=== PATIENT | male | born 1970 | race Caucasian/White ===

== ENCOUNTER → 2017-09-25 | Outpatient (CLI) | payer OTHER ==
[2017-09-25 15:31] LABS: BASOPHILS # (AUTO) 0.1 X10^3/uL (0.0-0.1); BASOPHILS % (AUTO) 0.9 % (0.2-1.0); EOSINOPHILS # (AUTO) 0.2 x10^3/uL (0.0-0.2); EOSINOPHILS % (AUTO) 2.9 % (0.9-2.9); HEMATOCRIT 40.6 % (42.0-54.0); HEMOGLOBIN 13.3 g/dL (13.5-18.0); LYMPHOCYTES # (AUTO) 2.4 X10^3/uL (1.3-2.9); LYMPHOCYTES % (AUTO) 34.5 % (21.0-51.0); MEAN CORPUSCULAR HEMOGLOBIN 23.9 pg (27.0-34.0); MEAN CORPUSCULAR HGB CONC 32.8 g/dL (33.0-35.0); MEAN CORPUSCULAR VOLUME 72.9 fL (80.0-100.0); MONOCYTES # (AUTO) 0.6 x10^3/uL (0.3-0.8); MONOCYTES % (AUTO) 8.6 % (0.0-13.0); NEUTROPHILS # (AUTO) 3.6 x10^3/uL (2.2-4.8); NEUTROPHILS % (AUTO) 53.1 % (42.0-75.0); PLATELET COUNT 226 X10^3/uL (150.0-450.0); RED BLOOD COUNT 5.57 X10^6/uL (4.7-6.0); RED CELL DISTRIBUTION WIDTH 23.1 % (11.6-16.5); WHITE BLOOD COUNT 6.9 X10^3/uL (3.6-10.0)
[2017-09-25 15:56] LABS: PLATELET MORPHOLOGY COMMENT NORMAL (NORMAL)
[2017-09-25 15:57] LABS: ANISOCYTOSIS 2+
== END ==
LOC: LAB 15:12
PROVIDERS: ATTEND Internal Medicine Gastroenterology
DX: D64.89 Other specified anemias (principal)
CPT/HCPCS: 36415; 85025

== ENCOUNTER 2022-08-26 16:09 | Observation (INO) ==
[2022-08-26] MEDS ORDERED: NS 1,000 ML IV 1,000 ML IV ONE ×3 (16:53→20:47)
[2022-08-26] MEDS ORDERED: NS 1,000 ML IV 1,000 ML ONE ×2 (16:54→18:24)
[2022-08-26] MEDS ORDERED: TORADOL 30 MG VIAL IVP ONE (17:07)
[2022-08-26] MEDS ORDERED: TORADOL 30 MG VIAL ONE (17:09)
[2022-08-26 17:14] LABS: BASOPHILS % (AUTO) 0.5 % (0.2-1.0); EOSINOPHILS % (AUTO) 0.1 % (0.9-2.9); HEMATOCRIT 47.3 % (42.0-54.0); HEMOGLOBIN 16.7 g/dL (13.5-18.0); LYMPHOCYTES # (AUTO) 0.9 X10^3/uL (1.3-2.9); LYMPHOCYTES % (AUTO) 16.2 % (21.0-51.0); MEAN CORPUSCULAR HEMOGLOBIN 29.7 pg (27.0-34.0); MEAN CORPUSCULAR HGB CONC 35.3 g/dL (33.0-35.0); MEAN CORPUSCULAR VOLUME 84.1 fL (80.0-100.0); MEAN PLATELET VOLUME 8.9 fL (7.4-11.0); MONOCYTES # (AUTO) 0.7 x10^3/uL (0.3-0.8); MONOCYTES % (AUTO) 11.4 % (0.0-13.0); NEUTROPHILS # (AUTO) 4.2 x10^3/uL (2.2-4.8); NEUTROPHILS % (AUTO) 71.8 % (42.0-75.0); RED BLOOD COUNT 5.63 X10^6/uL (4.7-6.0); WHITE BLOOD COUNT 5.9 X10^3/uL (3.6-10.0)
[2022-08-26 17:22] LABS: ALANINE AMINOTRANSFERASE 57 Units/L (12-78); ALBUMIN 3.3 g/dL (3.4-5.0); ALKALINE PHOSPHATASE 88 Units/L (46-116); ASPARTATE AMINO TRANSFERASE 36 Units/L (15-37); BLOOD UREA NITROGEN 46 mg/dL (7-18); CALCIUM 8.6 mg/dL (8.5-10.1); CARBON DIOXIDE 28.5 mmol/L (21-32); CHLORIDE 95 mmol/L (98-107); COR CA(FOR HYPOALB) 9.2 mg/dL (8.5-10.1); CREATININE 2.22 mg/dL (0.70-1.30); SODIUM 132 mmol/L (136-145); TOTAL PROTEIN 7.2 g/dL (6.4-8.2); eGFR NON BLACK RACES 33 (>60)
--- NOTE | 2022-08-26 18:15 | DR.HEADACH ---
HPI Time Seen Time Seen by Provider: 08/26/22 18:07 Primary Care Physician Primary Care Physician: ARINA HPI Comment HPI Comment: According to pt he had cold like symptoms with bodyaches .Pt called his FP .Tamiflu was called in .Pt took it felt little better and then began experiencing non- bloody watery diarrhea and fatigue.Pt has had low appetite .only been sipping small amount of fluid .Has also experienced nausea and voming without abdominal pain .his symptoims have persisted .Hence the visit .no oe at home with similar symptoms. Complaint/Symptoms Chief Complaint Doctors Comments: diarrhea Chief Complaint:: SINCE SUNDAY HAVING DIARRHEA, CAN'T HOLD ANY FOOD DOWN, N/V, UNABLE TO EAT/DRINK SINCE SUNDAY. THINKS HE ATE SOME "BAD CHICKEN" ON SUNDAY. THE SUNDAY BEFORE, HE WAS TREATED FOR FLU Self Treatment fo Chief Complaint: DID NOT TAKE BP MEDS THIS MORNING COVID-19 Coronavirus risk:travel/contact w/high risk person: No Has patient experienced Coronavirus symptoms: No Reviewed Nurses Notes Reviewed: Yes Source History Provided: Patient Mode of Arrival Mode of Arrival: Ambulatory Timing Onset of Chief Complaint: 08/23/22 Duration Since Onset: Since Onset Duration: Days Location Headache Location: Frontal Quality Quality: Aching Severity Headache Severity: Moderate PMH PMH Past Medical History: Yes Past Medical History: Hypertension and Kidney Stones Past Medical History Comment: DEE Past Surgical History: Yes Surgical History: Cholecystectomy and Lithotripsy Family History History of Family Medical Conditions: Yes Family Medical History: Diabetes Mellitus, Coronary Artery Disease and Hypertension Social History Does any household member use tobacco: No Alcohol Use: None Do you use any recreational Drugs:: No Lives With: Spouse and Family Lives Where: Home Travel Risk Coronavirus risk:travel/contact w/high risk person: No Has patient experienced Coronavirus symptoms: No Infectious screening In the last 2 months have you had wt loss of >10#?: NO Have you had fever, night sweats or hemotysis?: No Have you traveled outside the country in the last 6 months?: No Isolation: Standard ROS Review of Systems Constitutional: Malaise and Fatigue Eyes: No Symptoms Reported ENTM: No Symptoms Reported Respiratoy: No Symptoms Reported Cardiovascular: No Symptoms Reported Gastrointestinal/Abdominal: See HPI Genitourinary: No Symptoms Reported Neurological: Headache Musculoskeletal: No Symptoms Reported Integumentary: No Symptoms Reported Hematologic/Lymphatic: No Symptoms Reported Endocrine: No Symptoms Reported Psychiatric: No Symptoms Reported PE Vital Signs Vitals: Temperature 97.8 F Pulse Rate 76 Respiratory Rate 18 Blood Pressure [Left Arm] 165/78 Blood Pressure 111/55 O2 Sat by Pulse Oximetry 99 General Limitations: No Limitations General Appearance: Alert, In No Apparent Distress and Anxious Head Head Exam: Normal Inspection, Atraumatic and Normocephalic Eyes Eye exam: PERRL ENT ENT Exam: Normal Exam and Mucous Membranes Dry Mouth Exam: Normal Inspection Neck Neck Exam: Normal Inspection Chest Chest Inspection: Normal Inspection and Symmetric Chest Wall Rise Respiratory Respiratory Exam: Normal Lung Sounds Bilat Respiratory Exam: Bilateral: Clear to Auscultation Cardiovascular Cardiovascular Exam: +S1 and +S2 Abdominal Exam Abdominal Exam: Normal Bowel Sounds, Soft and Hyperactive Bowel Sounds Extremities Extremities Exam: Normal Inspection and Full ROM Back Back Exam: Full ROM Neurologic Neurological Exam: Alert and Oriented X3 Skin Skin Exam: Normal Color MDM Additional Information Obtained Additional Findings:: gastroenteritis ,viral syndrome headache COURSE Treatment Treatment: labs ,toradol ,iv fluids ROR Labs Reviewed Result Diagrams: 08/26/22 17:00 08/26/22 17:00 Laboratory: WBC 5.9 X10^3/uL (3.6-10.0) 08/26/22 17:00 RBC 5.63 X10^6/uL (4.7-6.0) 08/26/22 17:00 Hgb 16.7 g/dL (13.5-18.0) 08/26/22 17:00 Hct 47.3 % (42.0-54.0) 08/26/22 17:00 MCV 84.1 fL (80.0-100.0) 08/26/22 17:00 MCH 29.7 pg (27.0-34.0) 08/26/22 17:00 MCHC 35.3 g/dL (33.0-35.0) H 08/26/22 17:00 RDW 14.0 % (11.6-16.5) 08/26/22 17:00 Plt Count 235 X10^3/uL (150.0-450.0) 08/26/22 17:00 MPV 8.9 fL (7.4-11.0) 08/26/22 17:00 Neut % (Auto) 71.8 % (42.0-75.0) 08/26/22 17:00 Lymph % (Auto) 16.2 % (21.0-51.0) L 08/26/22 17:00 [place] % (Auto) 11.4 % (0.0-13.0) 08/26/22 17:00 Eos % (Auto) 0.1 % (0.9-2.9) L 08/26/22 17:00 Baso % (Auto) 0.5 % (0.2-1.0) 08/26/22 17:00 Neut # (Auto) 4.2 x10^3/uL (2.2-4.8) 08/26/22 17:00 Lymph # (Auto) 0.9 X10^3/uL (1.3-2.9) L 08/26/22 17:00 [place] # (Auto) 0.7 x10^3/uL (0.3-0.8) 08/26/22 17:00 Eos # (Auto) 0.0 x10^3/uL (0.0-0.2) 08/26/22 17:00 Baso # (Auto) 0.0 X10^3/uL (0.0-0.1) 08/26/22 17:00 Absolute Nucleated RBC 0.1 /100WBC 08/26/22 17:00 Sodium 132 mmol/L (136-145) L 08/26/22 17:00 Corrected Sodium TNP 08/26/22 17:00 Potassium 3.1 mmol/L (3.5-5.1) L 08/26/22 17:00 Chloride 95 mmol/L (98-107) L 08/26/22 17:00 Carbon Dioxide 28.5 mmol/L (21-32) 08/26/22 17:00 BUN 46 mg/dL (7-18) H 08/26/22 17:00 Creatinine 2.22 mg/dL (0.70-1.30) H 08/26/22 17:00 Est GFR (MDRD) Af Amer 40 (>60) L 08/26/22 17:00 Est GFR (MDRD) Non-Af 33 (>60) L 08/26/22 17:00 Glucose 95 mg/dL (65-99) 08/26/22 17:00 Calcium 8.6 mg/dL (8.5-10.1) 08/26/22 17:00 Corrected Calcium 9.2 mg/dL (8.5-10.1) 08/26/22 17:00 Total Bilirubin 0.60 mg/dL (0.2-1.0) 08/26/22 17:00 AST 36 Units/L (15-37) 08/26/22 17:00 ALT 57 Units/L (12-78) 08/26/22 17:00 Alkaline Phosphatase 88 Units/L (46-116) 08/26/22 17:00 Total Protein 7.2 g/dL (6.4-8.2) 08/26/22 17:00 Albumin 3.3 g/dL (3.4-5.0) L 08/26/22 17:00 Globulin 3.9 g/dL (2.5-4.5) 08/26/22 17:00 Albumin/Globulin Ratio 0.8 Ratio (1.1-2.1) L 08/26/22 17:00 Lipase 1015 Units/L (73-393) H 08/26/22 17:00 Influenza Type A Ag Negative-presumptive (NEGATIVE) 08/26/22 16:55 Influenza Type B Ag Negative-presumptive (NEGATIVE) 08/26/22 16:55 Opioid Opioid Risk Tool Age ([place] box if 16-45): No History of Preadolescent Sexual Abuse: No Total: 0 Total Score Risk Category: Low Risk Copyright: [facility] predicting aberrant behaviors Discharge Plan Diagnosis Discharge Problem: Acute pancreatitis, Acute dehydration, Acute renal failure, Hypokalemia Discharge Plan Patient Disposition: 01 HOME, SELF-CARE Condition: Stable Prescriptions: No Action esomeprazole magnesium 40 mg capsule,delayed release(DR/EC) 40 mg PO DAILY testosterone cypionate 200 mg/mL oil 200 mg IM WEEKLY buprenorphine HCl 2 mg tablet, sublingual 2 mg sublingual DAILY dextroamphetamine-amphetamine [Adderall] 20 mg Tablet 20 mg PO DAILY escitalopram oxalate 10 mg tablet 10 mg PO DAILY bupropion HCl [Wellbutrin XL] 300 mg Tablet Extended Release 24 Hr 300 mg PO DAILY Health Concerns: Post Hospitalization: new medications and changes needed to prevent readmission or further decline. Pt educated and given instructions on all concerns. Plan of Treatment: Continue with present treatment and follow up plan. Pt is to keep follow up appointment as instructed and take medications as ordered. Orders to Discharge Patient Discharge Orders: Discharge (Routine); Ordered 08/26/22 Ordered By: Nathan Crowder Transfer (Routine); Ordered 08/26/22 Ordered By: Nathan Crowder Follow ups/Referrals Follow ups/Referrals: Nikko Gomez [Primary Care Provider] - 3 days Instructions Stand Alone Forms: Precautions for [place] [address], [facility], Patient Portal, Social Distancing ADDITIONAL NOTES Additional Notes Additional Notes: labs reviewed Pt has elevated ser cr and bun with GFR 33( stage 3 renal failure) .last year ser cr was normal .Will give IV fluids and supplement potassium .spoke with Dr Conner agreed to admit patient .lipase elevated
[2022-08-26] MEDS ORDERED: K-DUR TAB 20 MEQ PO STA (18:16)
[2022-08-26] MEDS ORDERED: K-DUR TAB 20 MEQ PO ONE (18:17)
[2022-08-26] MEDS ORDERED: LR 1,000 ML IV 1,000 ML IV ONE (19:35)
[2022-08-26] MEDS: LR 1,000 ML IV 1,000 ML IV SCH (19:45)
[2022-08-26 20:36] LABS: BILIRUBIN,URINE NEGATIVE (NEGATIVE); BLOOD/HEMOGLOBIN,URINE 2+ (NEGATIVE); GLUCOSE, URINE NEGATIVE (NEGATIVE); KETONES,URINE 1+ (NEGATIVE); LEUKOCYTE ESTERASE ,URINE NEGATIVE (NEGATIVE); NITRITES,URINE NEGATIVE (NEGATIVE); PROTEIN,URINE 2+ (NEGATIVE); UROBILINOGEN,URINE NORMAL (NORMAL)
[2022-08-26 20:40] LABS: APPEARANCE,URINE CLEAR (CLEAR); COLOR,URINE PALE YELLOW (YELLOW)
[2022-08-26 20:41] LABS: BACTERIA,URINE TRACE /HPF (NEGATIVE); RBC,URINE 0-2 /HPF (0-3); SQUAMOUS EPITHELIAL CELL,UR RARE /HPF (NEGATIVE)
[2022-08-26] MEDS ORDERED: TYLENOL 325 MG TAB PO PRN (20:47)
[2022-08-26] MEDS ORDERED: K-DUR TAB 20 MEQ PO SCH (20:47)
[2022-08-26] MEDS: RESTORIL CAP 15 MG PO PRN (22:00)
[2022-08-26] MEDS: DILAUDID INJ IVP PRN (22:38)
[2022-08-27] MEDS: LR 1,000 ML IV 1,000 ML IV SCH ×2 (00:57→04:54)
[2022-08-27] MEDS: DILAUDID INJ IVP PRN ×5 (05:57→23:49)
[2022-08-27 06:13] LABS: BASOPHILS % (AUTO) 0.4 % (0.2-1.0); EOSINOPHILS % (AUTO) 0.5 % (0.9-2.9); HEMOGLOBIN 14.7 g/dL (13.5-18.0); LYMPHOCYTES # (AUTO) 1.5 X10^3/uL (1.3-2.9); LYMPHOCYTES % (AUTO) 24.4 % (21.0-51.0); MEAN CORPUSCULAR HEMOGLOBIN 29.7 pg (27.0-34.0); MEAN CORPUSCULAR HGB CONC 35.9 g/dL (33.0-35.0); MEAN CORPUSCULAR VOLUME 82.7 fL (80.0-100.0); MEAN PLATELET VOLUME 8.7 fL (7.4-11.0); MONOCYTES # (AUTO) 0.8 x10^3/uL (0.3-0.8); MONOCYTES % (AUTO) 13.2 % (0.0-13.0); NEUTROPHILS # (AUTO) 3.7 x10^3/uL (2.2-4.8); NEUTROPHILS % (AUTO) 61.5 % (42.0-75.0); RED BLOOD COUNT 4.95 X10^6/uL (4.7-6.0); RED CELL DISTRIBUTION WIDTH 13.9 % (11.6-16.5)
[2022-08-27 06:26] LABS: AMYLASE 173 Units/L (25-115); BLOOD UREA NITROGEN 32 mg/dL (7-18); CALCIUM 7.8 mg/dL (8.5-10.1); CARBON DIOXIDE 25.7 mmol/L (21-32); CHLORIDE 102 mmol/L (98-107); CREATININE 1.16 mg/dL (0.70-1.30); SODIUM 135 mmol/L (136-145); eGFR NON BLACK RACES > 60 (>60)
[2022-08-27 06:37] LABS: LIPASE > 1500 Units/L (73-393)
[2022-08-27] MEDS ORDERED: KLOR-CON PO PRN (08:00)
[2022-08-27] MEDS ORDERED: POTASSIUM CHL 60 MEQ/NS 0.45% 500 ML IV PRN (08:00)
[2022-08-27] MEDS ORDERED: POTASSIUM CHLORIDE LIQ 20 MEQ UDC PO PRN (08:00)
[2022-08-27] MEDS ORDERED: POTASSIUM CHL 40 MEQ/NS 0.45% 500 ML IV PRN (08:00)
[2022-08-27] MEDS ORDERED: MICRO K EXTEN CAP 10 MEQ PO PRN (08:00)
[2022-08-27] MEDS: K-RIDER 10 MEQ/NS 100 ML 10 MEQ/100 ML BAG IV PRN ×4 (08:52→23:46)
[2022-08-27] MEDS ORDERED: NS 1,000 ML IV 1,000 ML IV ONE (10:49)
[2022-08-27] MEDS: NS 1,000 ML IV 1,000 ML IV SCH ×2 (13:29→19:13)
[2022-08-27] MEDS: TORADOL 15 MG VIAL IVP PRN ×2 (13:46→21:54)
[2022-08-27 21:02] VITALS: BMI 16.3
[2022-08-27] MEDS: RESTORIL CAP 15 MG PO PRN (21:51)
[2022-08-28] MEDS: K-RIDER 10 MEQ/NS 100 ML 10 MEQ/100 ML BAG IV PRN ×7 (01:46→23:00)
[2022-08-28] MEDS: NS 1,000 ML IV 1,000 ML IV SCH ×3 (03:44→21:08)
[2022-08-28] MEDS: DILAUDID INJ IVP PRN ×5 (05:05→21:15)
[2022-08-28 06:16] LABS: BASOPHILS % (AUTO) 0.4 % (0.2-1.0); EOSINOPHILS # (AUTO) 0.1 x10^3/uL (0.0-0.2); EOSINOPHILS % (AUTO) 0.8 % (0.9-2.9); HEMATOCRIT 40.1 % (42.0-54.0); HEMOGLOBIN 14.3 g/dL (13.5-18.0); LYMPHOCYTES # (AUTO) 1.8 X10^3/uL (1.3-2.9); LYMPHOCYTES % (AUTO) 25.8 % (21.0-51.0); MEAN CORPUSCULAR HEMOGLOBIN 29.6 pg (27.0-34.0); MEAN CORPUSCULAR HGB CONC 35.7 g/dL (33.0-35.0); MEAN PLATELET VOLUME 8.6 fL (7.4-11.0); MONOCYTES % (AUTO) 13.6 % (0.0-13.0); NEUTROPHILS # (AUTO) 4.2 x10^3/uL (2.2-4.8); NEUTROPHILS % (AUTO) 59.4 % (42.0-75.0); RED BLOOD COUNT 4.83 X10^6/uL (4.7-6.0); RED CELL DISTRIBUTION WIDTH 13.9 % (11.6-16.5)
[2022-08-28 06:35] LABS: ALANINE AMINOTRANSFERASE 31 Units/L (12-78); ALBUMIN 2.6 g/dL (3.4-5.0); ALKALINE PHOSPHATASE 63 Units/L (46-116); AMYLASE 342 Units/L (25-115); ASPARTATE AMINO TRANSFERASE 22 Units/L (15-37); BLOOD UREA NITROGEN 24 mg/dL (7-18); CALCIUM 7.5 mg/dL (8.5-10.1); CARBON DIOXIDE 23.4 mmol/L (21-32); CHLORIDE 106 mmol/L (98-107); COR CA(FOR HYPOALB) 8.6 mg/dL (8.5-10.1); CREATININE 0.82 mg/dL (0.70-1.30); SODIUM 138 mmol/L (136-145); TOTAL PROTEIN 5.7 g/dL (6.4-8.2); eGFR NON BLACK RACES > 60 (>60)
[2022-08-28 07:03] LABS: LIPASE 3253 Units/L (73-393)
[2022-08-28] MEDS: TORADOL 15 MG VIAL IVP PRN (11:57)
[2022-08-28] MEDS: CIPRO IV 400 MG PREMIX* 400 MG/200 ML IV.SOLN. IV SCH ×2 (13:05→21:07)
--- NOTE | 2022-08-28 15:20 | CT ---
HISTORY:Elevated lipaseStudy: CT abdomen and pelvis with contrastComparison:NoneTechnique: Multiple axial images of the abdomen and pelvis were obtained with IV contrast. Oral contrast was not administered. Dose reduction techniques including Automated Exposure Control (AEC) and adjustment of mA and kV were utilized.FINDINGS:The lung bases are clear. The liver, spleen, pancreas, and adrenal glands are unremarkable in their CT appearance. Specifically no CT evidence of pancreatitis. No pancreatic mass or ductal dilatation. No pseudocyst. Gallbladder is removed.No renal calculi or obstructive uropathy.No free intraperitoneal air. No evidence of intestinal obstruction. Oral contrast reaches the distal colon. Mild nonspecific colonic bowel wall edema is suggested. Appendix not clearly visualized. No ascites or abscess.There are discogenic degenerative changes at L5-S1. No acute osseous abnormality identified. The vascular structures are unremarkable . No pathologically enlarged lymph nodes are identified.Normal urinary bladder.IMPRESSION ABDOMEN/PELVIS:No CT evidence of pancreatitis.Mild nonspecific colonic bowel wall thickening which may be due to enteritis or colitis. No obstruction.Electronically signed by: DANIEL NUÑEZ (Aug 28, 2022 15:19:19)
[2022-08-28] MEDS: RESTORIL CAP 15 MG PO PRN (21:07)
[2022-08-29] MEDS: DILAUDID INJ IVP PRN ×6 (01:20→21:45)
[2022-08-29] MEDS: NS 1,000 ML IV 1,000 ML IV SCH ×3 (06:20→19:00)
[2022-08-29 06:42] LABS: BASOPHILS % (AUTO) 0.5 % (0.2-1.0); EOSINOPHILS # (AUTO) 0.1 x10^3/uL (0.0-0.2); EOSINOPHILS % (AUTO) 0.8 % (0.9-2.9); HEMATOCRIT 41.4 % (42.0-54.0); HEMOGLOBIN 14.6 g/dL (13.5-18.0); LYMPHOCYTES # (AUTO) 2.1 X10^3/uL (1.3-2.9); LYMPHOCYTES % (AUTO) 24.6 % (21.0-51.0); MEAN CORPUSCULAR HEMOGLOBIN 29.4 pg (27.0-34.0); MEAN CORPUSCULAR HGB CONC 35.4 g/dL (33.0-35.0); MEAN CORPUSCULAR VOLUME 83.1 fL (80.0-100.0); MEAN PLATELET VOLUME 8.5 fL (7.4-11.0); MONOCYTES # (AUTO) 1.2 x10^3/uL (0.3-0.8); MONOCYTES % (AUTO) 13.8 % (0.0-13.0); NEUTROPHILS # (AUTO) 5.1 x10^3/uL (2.2-4.8); NEUTROPHILS % (AUTO) 60.3 % (42.0-75.0); RED BLOOD COUNT 4.98 X10^6/uL (4.7-6.0); RED CELL DISTRIBUTION WIDTH 13.6 % (11.6-16.5); WHITE BLOOD COUNT 8.4 X10^3/uL (3.6-10.0)
[2022-08-29 06:48] LABS: BLOOD UREA NITROGEN 15 mg/dL (7-18); CALCIUM 8.2 mg/dL (8.5-10.1); CARBON DIOXIDE 23.3 mmol/L (21-32); CHLORIDE 105 mmol/L (98-107); CREATININE 0.88 mg/dL (0.70-1.30); SODIUM 141 mmol/L (136-145); eGFR NON BLACK RACES > 60 (>60)
[2022-08-29 06:49] LABS: AMYLASE 297 Units/L (25-115)
[2022-08-29 07:22] LABS: BAND NEUTROPHILS % 7 % (0-10); MYELOCYTES % 1; PLATELET MORPHOLOGY COMMENT NORMAL (NORMAL)
[2022-08-29] MEDS: CIPRO IV 400 MG PREMIX* 400 MG/200 ML IV.SOLN. IV SCH ×2 (08:13→21:47)
[2022-08-29] MEDS: K-DUR TAB 20 MEQ PO PRN (08:14)
[2022-08-29 08:34] LABS: LIPASE 2302 Units/L (73-393)
[2022-08-29] MEDS ORDERED: ZANAFLEX PO PRN (11:29)
[2022-08-29 12:00] LABS: ALANINE AMINOTRANSFERASE 31 Units/L (12-78); ALBUMIN 2.9 g/dL (3.4-5.0); ALKALINE PHOSPHATASE 74 Units/L (46-116); ASPARTATE AMINO TRANSFERASE 26 Units/L (15-37); CHOL/HDL RATIO 5.9 (0.0-5.0); CHOLESTEROL 118 mg/dL (0-200); COR CA(FOR HYPOALB) 9.1 mg/dL (8.5-10.1); HDL CHOLESTEROL 20 mg/dL (40-60); TOTAL PROTEIN 6.2 g/dL (6.4-8.2); TRIGLYCERIDES 134 mg/dL (0-150)
[2022-08-29] MEDS: SYNTHROID 75 mcg TAB PO SCH (12:19)
[2022-08-29] MEDS: PEPCID 20 MG VIAL 20 MG in NS 50 ML IV 50 ML IV SCH ×2 (12:19→21:11)
[2022-08-29] MEDS: PROTONIX INJ 40 MG VIAL IVP SCH ×2 (12:19→21:11)
[2022-08-29] MEDS: OLMESARTAN 5 MG PO SCH (12:20)
[2022-08-29] MEDS: NEURONTIN CAP 300 MG PO SCH ×2 (13:22→21:10)
--- NOTE | 2022-08-29 13:46 | PCM.PROG ---
Progress Note - Progress Note for Day of Date of Exam: 08/28/22 - Subjective Subjective: IS CURRENTLY OBSERVATION STATUS FOR TREATMENT OF ACUTE RENAL FAILURE, DEHYDRATION, DIARRHEA, ABDOMINAL PAIN, AND HYPOKALEMIA. TODAY, HE IS ALERT AND ORIENTED, LYING IN BED ON MORNING ROUNDS. HE CONTINUES WITH COMPLAINTS OF DIFFUSE ABDOMINAL PAIN AND CRAMPING, NAUSEA, AND WEAKNESS. ON EXAMINATION, HEART IS REGULAR IN RATE AND RHYTHM. BILATERAL LUNGS ARE CLEAR TO AUSCULTATION. ABDOMEN IS ROUND, SOFT, AND NOTED WITH DIFFUSE TENDERNESS. HYPERACTIVE BOWEL SOUNDS NOTED IN ALL QUADRANTS. HIS VITALS THIS MORNING ARE: 98.1-81-18-98%-133/71. LABS WERE OBTAINED. WBC 7.0, RBC 4.83, HGB 14.3, HCT 40.1, SODIUM 138, POTASSIUM 3.2, CHLORIDE 106, BUN 24, CREATININE 0.82, GLUCOSE 76, CALCIUM 7.5, AST 22, ALT 31, ALK PHOS 63, TOTAL PROTEIN 5.7, ALBUMIN 2.6, AMYLASE 342, LIPASE 3253. HE WAS NEGATIVE FOR COVID, INFLUENZA, AND RSV. STOOL SAMPLE WAS POSITIVE FOR CAMPYLOBACTER. STOOL CULTURE WAS SET UP. AN ABDOMEN/PELVIS CT WITH CONTRAST WAS OBTAINED AND REVEALED: No CT evidence of pancreatitis. Mild nonspecific colonic bowel wall thickening which may be due to enteritis or colitis. No obstruction. HE IS CURRENTLY RECEIVING NORMAL SALINE AT 150 ML/HR, THE POTASSIUM PROTOCOL, TYLENOL 500MG PO Q6H PRN, DILAUDID 2MG IV Q4H PRN PAIN, TORADOL 15MG IV Q6H PRN PAIN, RESTORIL 15MG PO HS PRN. HE HAS REQUIRED MULTIPLE DOSES OF PAIN MEDICATIONS SINCE ADMISSION. TODAY, WE WILL ADD CIPRO 400MG IV Q12H. OTHERWISE, WE PLAN TO FOLLOW-UP WITH AM LABS AND CONTINUE TO MONITOR. TIME SPENT ON CLINICAL ASSESSMENT, REVIWING LABS AND IMAGING, DECISION MAKING, AND DOCUMENTATION GREATER THAN 45 MINUTES. - Past Medical Family Social History Past Med/Fam/Surg Hx: No changes since H&P Allergies: Allergies triamcinolone [From Kenalog] Allergy (Verified 04/15/19 11:14) - Review of Systems ROS: No change since H&P - Vital Signs and I&O's Vital Signs: Temperature 98.1 F Pulse Rate [Left] 71 Pulse Rate 76 Respiratory Rate 18 Blood Pressure [Left Arm] 179/96 Blood Pressure 111/55 O2 Sat by Pulse Oximetry 99 Intake and Output: Intake & Output 08/27/22 08/28/22 08/29/22 08/30/22 11:59 11:59 11:59 11:59 Intake Total 999 / 999 5743 / 5743 3519 / 3519 Balance 999 / 999 5743 / 5743 3519 / 3519 - Physical Exam Oriented: Normal Eyes: Normal Ear: Normal Nose: Normal Throat: Normal Respiratory: Normal Cardiovascular: Normal : Normal Auscultation: Bowel Sounds: Normal Palpation: Normal Tenderness: Diffuse Skin: Decreased Turgur Musculoskeletal: Normal Psychiatric: Normal Mood Description: Calm Affect: Normal Speech Pattern: Clear, Appropriate - Laboratory and Diagnostics Result Diagrams: 08/29/22 05:19 08/29/22 05:19 Labs: 08/28/22 10:34 Stool Stool Culture - Preliminary 08/28/22 10:34 Stool - Final Laboratory WBC 8.4 X10^3/uL (3.6-10.0) 08/29/22 05:19 RBC 4.98 X10^6/uL (4.7-6.0) 08/29/22 05:19 Hgb 14.6 g/dL (13.5-18.0) 08/29/22 05:19 Hct 41.4 % (42.0-54.0) L 08/29/22 05:19 MCV 83.1 fL (80.0-100.0) 08/29/22 05:19 MCH 29.4 pg (27.0-34.0) 08/29/22 05:19 MCHC 35.4 g/dL (33.0-35.0) H 08/29/22 05:19 RDW 13.6 % (11.6-16.5) 08/29/22 05:19 Plt Count 294 X10^3/uL (150.0-450.0) 08/29/22 05:19 Plt Count Comment Adequate (ADEQUATE) 08/29/22 05:19 MPV 8.5 fL (7.4-11.0) 08/29/22 05:19 Neut % (Auto) 60.3 % (42.0-75.0) 08/29/22 05:19 Lymph % (Auto) 24.6 % (21.0-51.0) 08/29/22 05:19 [place] % (Auto) 13.8 % (0.0-13.0) H 08/29/22 05:19 Eos % (Auto) 0.8 % (0.9-2.9) L 08/29/22 05:19 Baso % (Auto) 0.5 % (0.2-1.0) 08/29/22 05:19 Neut # (Auto) 5.1 x10^3/uL (2.2-4.8) H 08/29/22 05:19 Lymph # (Auto) 2.1 X10^3/uL (1.3-2.9) 08/29/22 05:19 [place] # (Auto) 1.2 x10^3/uL (0.3-0.8) H 08/29/22 05:19 Eos # (Auto) 0.1 x10^3/uL (0.0-0.2) 08/29/22 05:19 Baso # (Auto) 0.0 X10^3/uL (0.0-0.1) 08/29/22 05:19 Absolute Nucleated RBC 0.1 /100WBC 08/29/22 05:19 Total Counted 100 08/29/22 05:19 Neutrophils % (Manual) 43 % (39-76) 08/29/22 05:19 Band Neutrophils % 7 % (0-10) 08/29/22 05:19 Lymphocytes % (Manual) 31 % (13-43) 08/29/22 05:19 Monocytes % (Manual) 18 % (4-9) H 08/29/22 05:19 Myelocytes % 1 08/29/22 05:19 Plt Morphology Comment Normal (NORMAL) 08/29/22 05:19 RBC Morphology Normal (NORMAL) 08/29/22 05:19 Sodium 141 mmol/L (136-145) 08/29/22 05:19 Corrected Sodium TNP 08/29/22 05:19 Potassium 3.7 mmol/L (3.5-5.1) 08/29/22 05:19 Chloride 105 mmol/L (98-107) 08/29/22 05:19 Carbon Dioxide 23.3 mmol/L (21-32) 08/29/22 05:19 BUN 15 mg/dL (7-18) 08/29/22 05:19 Creatinine 0.88 mg/dL (0.70-1.30) 08/29/22 05:19 Est GFR (MDRD) Af Amer > 60 (>60) 08/29/22 05:19 Est GFR (MDRD) Non-Af > 60 (>60) 08/29/22 05:19 Glucose 73 mg/dL (65-99) 08/29/22 05:19 Calcium 8.2 mg/dL (8.5-10.1) L 08/29/22 05:19 Corrected Calcium 9.1 mg/dL (8.5-10.1) 08/29/22 05:19 Magnesium 2.3 mg/dL (2.0-2.9) 08/26/22 17:00 Total Bilirubin 0.40 mg/dL (0.2-1.0) 08/29/22 05:19 AST 26 Units/L (15-37) 08/29/22 05:19 ALT 31 Units/L (12-78) 08/29/22 05:19 Alkaline Phosphatase 74 Units/L (46-116) 08/29/22 05:19 Total Protein 6.2 g/dL (6.4-8.2) L 08/29/22 05:19 Albumin 2.9 g/dL (3.4-5.0) L 08/29/22 05:19 Globulin 3.3 g/dL (2.5-4.5) 08/29/22 05:19 Albumin/Globulin Ratio 0.9 Ratio (1.1-2.1) L 08/29/22 05:19 Triglycerides 134 mg/dL (0-150) 08/29/22 05:19 Cholesterol 118 mg/dL (0-200) 08/29/22 05:19 LDL Cholesterol, Calc 71 mg/dL (0-100) 08/29/22 05:19 HDL Cholesterol 20 mg/dL (40-60) L 08/29/22 05:19 Cholesterol/HDL Ratio 5.9 (0.0-5.0) H 08/29/22 05:19 Amylase 297 Units/L (25-115) H 08/29/22 05:19 Lipase 2302 Units/L (73-393) H 08/29/22 05:19 Specimen Type Clean catch urine 08/26/22 20:26 Urine Color Pale yellow (YELLOW) 08/26/22 20: Urine Appearance Clear (CLEAR) 08/26/22: Urine pH 6.0 (5.0 - 8.0) 08/26/22: Ur Specific [place] 1.010 (1.000-1.030) 08/26/22: Urine Protein 2+ (NEGATIVE) 08/26/22: Urine Glucose (UA) Negative (NEGATIVE) 08/26/22: Urine Ketones 1+ (NEGATIVE) 08/26/22: Urine Blood 2+ (NEGATIVE) 08/26/22: Urine Nitrite Negative (NEGATIVE) 08/26/22: Urine Bilirubin Negative (NEGATIVE) 08/26/22 Urine Urobilinogen Normal (NORMAL) 08/26/22 20: Ur Leukocyte Esterase Negative (NEGATIVE) 08/26/22 20: Urine RBC 0-2 /HPF (0-3) 08/26/22: Urine WBC 0-2 /HPF (0-5) 08/26/22 20: Ur Squamous Epith Cells Rare /HPF (NEGATIVE) 08/26/22 20: Urine Bacteria Trace /HPF (NEGATIVE) 08/26/22 20: Ur Culture Indicated? No/not indicated 08/26/22 20: SARS-CoV-2 (PCR) Negative (NEGATIVE) 08/28/22 09:58 Influenza Type A Ag Negative-presumptive (NEGATIVE) 08/26/22 16:55 Influenza Type A (PCR) Negative (NEGATIVE) 08/28/22 09:58 Influenza Type B Ag Negative-presumptive (NEGATIVE) 08/26/22 16:55 Influenza Type B (PCR) Negative (NEGATIVE) 08/28/22 09:58 RSV (PCR) Negative (NEGATIVE) 08/28/22 09:58 - Plan (1) Acute renal failure Status: Acute Qualifiers: Acute renal failure type: unspecified Qualified Code(s): N17.9 - Acute kidney failure, unspecified Plan: NORMAL SALINE AT 150 ML/HR, THE POTASSIUM PROTOCOL, TYLENOL 500MG PO Q6H PRN, DILAUDID 2MG IV Q4H PRN PAIN, TORADOL 15MG IV Q6H PRN PAIN, RESTORIL 15MG PO HS PRN. (2) Acute dehydration Status: Acute (3) Campylobacter enteritis Status: Acute (4) Hypokalemia Status: Acute
--- NOTE | 2022-08-29 14:03 | PCM.PROG ---
Progress Note - Progress Note for Day of Date of Exam: 08/29/22 - Subjective Subjective: IS CURRENTLY OBSERVATION STATUS FOR TREATMENT OF ACUTE RENAL FAILURE, DEHYDRATION, CAMPYLOBACTER ENTERITIS, ABDOMINAL PAIN, AND HYPOKALEMIA. TODAY, HE IS ALERT AND ORIENTED, LYING IN BED ON MORNING ROUNDS. HE CONTINUES WITH COMPLAINTS OF DIFFUSE ABDOMINAL PAIN AND CRAMPING, NAUSEA, AND WEAKNESS. HE DOES ADMIT TO SLIGHT IMPROVENT IN SYMPTOMS SINCE YESTERDAY. ON EXAMINATION, HEART IS REGULAR IN RATE AND RHYTHM. BILATERAL LUNGS ARE CLEAR TO AUSCULTATION. ABDOMEN IS ROUND, SOFT, AND NOTED WITH DIFFUSE TENDERNESS. HYPERACTIVE BOWEL SOUNDS NOTED IN ALL QUADRANTS. HIS VITALS THIS MORNING ARE: 97.7-82-18-99%-155/79. LABS WERE OBTAINED. WBC 8.4, RBC 4.98, HGB 14.6, HCT 41.4, PLT COUNT 294, SODIUM 141, POTASSIUM 3.7, CHLORIDE 105, BUN 15, CREATININE 0.88, GLUCOSE 73, CALCIUM 8.2, AST 26, ALT 31, ALK PHOS 74, TOTAL PROTEIN 6.2, ALBUMIN 2.9, TRIGLYCERIDES 134, CHOLESTEROL 118, LDL 71, HDL 20, AMYLASE 297, LIPASE 2302. HE WAS NEGATIVE FOR COVID, INFLUENZA, AND RSV. STOOL SAMPLE WAS POSITIVE FOR CAMPYLOBACTER. STOOL CULTURE WAS SET UP. HE IS CURRENTLY RECEIVING NORMAL SALINE AT 150 ML/HR, CIPRO 400MG IV Q12H, THE POTASSIUM PROTOCOL, TYLENOL 500MG PO Q6H PRN, DILAUDID 2MG IV Q4H PRN PAIN, TORADOL 15MG IV Q6H PRN PAIN, RESTORIL 15MG PO HS PRN. HE HAS REQUIRED MULTIPLE DOSES OF PAIN MEDICATIONS SINCE ADMISSION. TODAY, WE WILL ADD DICYCLOMINE 20MG PO QID, PEPCID 20MG IV Q12H, PROTONIX 40MG IV BID. WE WILL ADVANCE HIM TO A CLEAR LIQUID DIET. OTHERWISE, WE PLAN TO FOLLOW-UP WITH AM LABS AND CONTINUE TO MONITOR. TIME SPENT ON CLINICAL ASSESSMENT, REVIWING LABS AND IMAGING, DECISION MAKING, AND DOCUMENTATION GREATER THAN 45 MINUTES. - Past Medical Family Social History Past Med/Fam/Surg Hx: No changes since H&P Allergies: Allergies triamcinolone [From Kenalog] Allergy (Verified 04/15/19 11:14) - Review of Systems ROS: No change since H&P - Vital Signs and I&O's Vital Signs: Temperature 98.1 F Pulse Rate [Left] 71 Pulse Rate 76 Respiratory Rate 18 Blood Pressure [Left Arm] 179/96 Blood Pressure 111/55 O2 Sat by Pulse Oximetry 99 Intake and Output: Intake & Output 08/27/22 08/28/22 08/29/22 08/30/22 11:59 11:59 11:59 11:59 Intake Total 1000 / 1000 5743 / 5743 3519 / 3519 Balance 1000 / 1000 5743 / 5743 3519 / 3519 - Physical Exam Oriented: Normal Eyes: Normal Ear: Normal Nose: Normal Throat: Normal Respiratory: Normal Cardiovascular: Normal : Normal Auscultation: Bowel Sounds: Normal Palpation: Normal Tenderness: Diffuse Skin: Decreased Turgur Musculoskeletal: Normal Psychiatric: Normal Mood Description: Calm Affect: Normal Speech Pattern: Clear, Appropriate - Laboratory and Diagnostics Result Diagrams: 08/29/22 05:19 08/29/22 05:19 Labs: 08/28/22 10:34 Stool Stool Culture - Preliminary 08/28/22 10:34 Stool - Final Laboratory WBC 8.4 X10^3/uL (3.6-10.0) 08/29/22 05:19 RBC 4.98 X10^6/uL (4.7-6.0) 08/29/22 05:19 Hgb 14.6 g/dL (13.5-18.0) 08/29/22 05:19 Hct 41.4 % (42.0-54.0) L 08/29/22 05:19 MCV 83.1 fL (80.0-100.0) 08/29/22 05:19 MCH 29.4 pg (27.0-34.0) 08/29/22 05:19 MCHC 35.4 g/dL (33.0-35.0) H 08/29/22 05:19 RDW 13.6 % (11.6-16.5) 08/29/22 05:19 Plt Count 294 X10^3/uL (150.0-450.0) 08/29/22 05:19 Plt Count Comment Adequate (ADEQUATE) 08/29/22 05:19 MPV 8.5 fL (7.4-11.0) 08/29/22 05:19 Neut % (Auto) 60.3 % (42.0-75.0) 08/29/22 05:19 Lymph % (Auto) 24.6 % (21.0-51.0) 08/29/22 05:19 [place] % (Auto) 13.8 % (0.0-13.0) H 08/29/22 05:19 Eos % (Auto) 0.8 % (0.9-2.9) L 08/29/22 05:19 Baso % (Auto) 0.5 % (0.2-1.0) 08/29/22 05:19 Neut # (Auto) 5.1 x10^3/uL (2.2-4.8) H 08/29/22 05:19 Lymph # (Auto) 2.1 X10^3/uL (1.3-2.9) 08/29/22 05:19 [place] # (Auto) 1.2 x10^3/uL (0.3-0.8) H 08/29/22 05:19 Eos # (Auto) 0.1 x10^3/uL (0.0-0.2) 08/29/22 05:19 Baso # (Auto) 0.0 X10^3/uL (0.0-0.1) 08/29/22 05:19 Absolute Nucleated RBC 0.1 /100WBC 08/29/22 05:19 Total Counted 100 08/29/22 05:19 Neutrophils % (Manual) 43 % (39-76) 08/29/22 05:19 Band Neutrophils % 7 % (0-10) 08/29/22 05:19 Lymphocytes % (Manual) 31 % (13-43) 08/29/22 05:19 Monocytes % (Manual) 18 % (4-9) H 08/29/22 05:19 Myelocytes % 1 08/29/22 05:19 Plt Morphology Comment Normal (NORMAL) 08/29/22 05:19 RBC Morphology Normal (NORMAL) 08/29/22 05:19 Sodium 141 mmol/L (136-145) 08/29/22 05:19 Corrected Sodium TNP 08/29/22 05:19 Potassium 3.7 mmol/L (3.5-5.1) 08/29/22 05:19 Chloride 105 mmol/L (98-107) 08/29/22 05:19 Carbon Dioxide 23.3 mmol/L (21-32) 08/29/22 05:19 BUN 15 mg/dL (7-18) 08/29/22 05:19 Creatinine 0.88 mg/dL (0.70-1.30) 08/29/22 05:19 Est GFR (MDRD) Af Amer > 60 (>60) 08/29/22 05:19 Est GFR (MDRD) Non-Af > 60 (>60) 08/29/22 05:19 Glucose 73 mg/dL (65-99) 08/29/22 05:19 Calcium 8.2 mg/dL (8.5-10.1) L 08/29/22 05:19 Corrected Calcium 9.1 mg/dL (8.5-10.1) 08/29/22 05:19 Magnesium 2.3 mg/dL (2.0-2.9) 08/26/22 17:00 Total Bilirubin 0.40 mg/dL (0.2-1.0) 08/29/22 05:19 AST 26 Units/L (15-37) 08/29/22 05:19 ALT 31 Units/L (12-78) 08/29/22 05:19 Alkaline Phosphatase 74 Units/L (46-116) 08/29/22 05:19 Total Protein 6.2 g/dL (6.4-8.2) L 08/29/22 05:19 Albumin 2.9 g/dL (3.4-5.0) L 08/29/22 05:19 Globulin 3.3 g/dL (2.5-4.5) 08/29/22 05:19 Albumin/Globulin Ratio 0.9 Ratio (1.1-2.1) L 08/29/22 05:19 Triglycerides 134 mg/dL (0-150) 08/29/22 05:19 Cholesterol 118 mg/dL (0-200) 08/29/22 05:19 LDL Cholesterol, Calc 71 mg/dL (0-100) 08/29/22 05:19 HDL Cholesterol 20 mg/dL (40-60) L 08/29/22 05:19 Cholesterol/HDL Ratio 5.9 (0.0-5.0) H 08/29/22 05:19 Amylase 297 Units/L (25-115) H 08/29/22 05:19 Lipase 2302 Units/L (73-393) H 08/29/22 05:19 Specimen Type Clean catch urine 08/26/22 20: Urine Color Pale yellow (YELLOW) 08/26/22 20: Urine Appearance Clear (CLEAR) 08/26/22 20: Urine pH 6.0 (5.0 - 8.0) 08/26/22 20: Ur Specific [place] 1.010 (1.000-1.030) 08/26/22 20: Urine Protein 2+ (NEGATIVE) 08/26/22 20: Urine Glucose (UA) Negative (NEGATIVE) 08/26/22: Urine Ketones 1+ (NEGATIVE) 08/26/22: Urine Blood 2+ (NEGATIVE) 08/26/22: Urine Nitrite Negative (NEGATIVE) 08/26/22 Urine Bilirubin Negative (NEGATIVE) 08/26/22 20: Urine Urobilinogen Normal (NORMAL) 08/26/22: Ur Leukocyte Esterase Negative (NEGATIVE) 08/26/22 20: Urine RBC 0-2 /HPF (0-3) 08/26/22 20: Urine WBC 0-2 /HPF (0-5) 08/26/22 20: Ur Squamous Epith Cells Rare /HPF (NEGATIVE) 08/26/22 20: Urine Bacteria Trace /HPF (NEGATIVE) 08/26/22 20: Ur Culture Indicated? No/not indicated 08/26/22 20: SARS-CoV-2 (PCR) Negative (NEGATIVE) 08/28/22 09:58 Influenza Type A Ag Negative-presumptive (NEGATIVE) 08/26/22 16:55 Influenza Type A (PCR) Negative (NEGATIVE) 08/28/22 09:58 Influenza Type B Ag Negative-presumptive (NEGATIVE) 08/26/22 16:55 Influenza Type B (PCR) Negative (NEGATIVE) 08/28/22 09:58 RSV (PCR) Negative (NEGATIVE) 08/28/22 09:58 - Plan (1) Acute renal failure Status: Acute Qualifiers: Acute renal failure type: unspecified Qualified Code(s): N17.9 - Acute kidney failure, unspecified Plan: NORMAL SALINE AT 150 ML/HR, CIPRO 400MG IV Q12H, PEPCID 20MG IV BID, PROTONIX 40MG IV BID, DICYCLOMINE 20MG QID, THE POTASSIUM PROTOCOL, TYLENOL 500MG PO Q6H PRN, DILAUDID 2MG IV Q4H PRN PAIN, TORADOL 15MG IV Q6H PRN PAIN, RESTORIL 15MG PO HS PRN. (2) Acute dehydration Status: Acute (3) Campylobacter enteritis Status: Acute (4) Hypokalemia Status: Acute
[2022-08-29] MEDS: BENTYL CAP 10 MG PO SCH ×3 (14:16→21:10)
[2022-08-29] MEDS: RESTORIL CAP 15 MG PO PRN (21:45)
[2022-08-30] MEDS: NS 1,000 ML IV 1,000 ML IV SCH ×4 (00:50→11:07)
[2022-08-30] MEDS: DILAUDID INJ IVP PRN ×2 (03:17→08:01)
[2022-08-30 05:07] LABS: BASOPHILS # (AUTO) 0.1 X10^3/uL (0.0-0.1); BASOPHILS % (AUTO) 1.4 % (0.2-1.0); EOSINOPHILS # (AUTO) 0.2 x10^3/uL (0.0-0.2); EOSINOPHILS % (AUTO) 1.8 % (0.9-2.9); HEMATOCRIT 40.7 % (42.0-54.0); HEMOGLOBIN 14.3 g/dL (13.5-18.0); LYMPHOCYTES # (AUTO) 2.4 X10^3/uL (1.3-2.9); LYMPHOCYTES % (AUTO) 28.3 % (21.0-51.0); MEAN CORPUSCULAR HEMOGLOBIN 28.9 pg (27.0-34.0); MEAN CORPUSCULAR HGB CONC 35.2 g/dL (33.0-35.0); MEAN CORPUSCULAR VOLUME 82.2 fL (80.0-100.0); MEAN PLATELET VOLUME 8.1 fL (7.4-11.0); MONOCYTES # (AUTO) 1.2 x10^3/uL (0.3-0.8); MONOCYTES % (AUTO) 13.7 % (0.0-13.0); NEUTROPHILS # (AUTO) 4.7 x10^3/uL (2.2-4.8); NEUTROPHILS % (AUTO) 54.8 % (42.0-75.0); RED BLOOD COUNT 4.95 X10^6/uL (4.7-6.0); RED CELL DISTRIBUTION WIDTH 13.8 % (11.6-16.5); WHITE BLOOD COUNT 8.5 X10^3/uL (3.6-10.0)
[2022-08-30] MEDS: NEURONTIN CAP 300 MG PO SCH (05:15)
[2022-08-30 05:17] LABS: ALANINE AMINOTRANSFERASE 31 Units/L (12-78); ALBUMIN 2.8 g/dL (3.4-5.0); ALKALINE PHOSPHATASE 69 Units/L (46-116); ASPARTATE AMINO TRANSFERASE 23 Units/L (15-37); BLOOD UREA NITROGEN 9 mg/dL (7-18); CALCIUM 7.7 mg/dL (8.5-10.1); CARBON DIOXIDE 26.6 mmol/L (21-32); CHLORIDE 107 mmol/L (98-107); COR CA(FOR HYPOALB) 8.7 mg/dL (8.5-10.1); CREATININE 0.85 mg/dL (0.70-1.30); SODIUM 140 mmol/L (136-145); eGFR NON BLACK RACES > 60 (>60)
[2022-08-30] MEDS: PROTONIX INJ 40 MG VIAL IVP SCH (07:59)
[2022-08-30] MEDS: BENTYL CAP 10 MG PO SCH (08:00)
[2022-08-30] MEDS: SYNTHROID 75 mcg TAB PO SCH (08:00)
[2022-08-30] MEDS: PEPCID 20 MG VIAL 20 MG in NS 50 ML IV 50 ML IV SCH (08:00)
[2022-08-30] MEDS: OLMESARTAN 5 MG PO SCH (08:01)
[2022-08-30] MEDS: K-DUR TAB 20 MEQ PO PRN (08:01)
[2022-08-30 08:19] VITALS: BP 139/72
[2022-08-30] MEDS: CIPRO IV 400 MG PREMIX* 400 MG/200 ML IV.SOLN. IV SCH (08:45)
[2022-08-30 08:46] LABS: AMYLASE 242 Units/L (25-115)
[2022-08-30 08:50] LABS: LIPASE 1559 Units/L (73-393)
[2022-08-30] MEDS: TORADOL 15 MG VIAL IVP PRN (10:32)
== END 2022-08-30 11:14 | disposition home or self-care (01) ==
LOC: MED/SURG 16:09 → ER 16:09 → MED/SURG 20:32
PROVIDERS: ADMIT Internal Medicine; ATTEND Internal Medicine
DX: A04.5 Campylobacter enteritis; N17.8 Other acute kidney failure; E86.0 Dehydration; R11.2 Nausea with vomiting, unspecified; Z20.822 Contact with and (suspected) exposure to COVID-19; E87.1 Hypo-osmolality and hyponatremia; A02.0 Salmonella enteritis; E87.6 Hypokalemia; R94.4 Abnormal results of kidney function studies; I10 Essential (primary) hypertension